=== PATIENT | female | born 1980 | race African-American/Black ===

== ENCOUNTER → 2025-06-24 | Outpatient (CLI) | payer OTHER ==
[2025-06-24 11:57] LABS: PLATELET COUNT (AUTO) 260 K/uL (150-450); RED BLOOD CELL COUNT(AUTO) 4.39 MIL/uL (4.00-5.20); RED CELL DISTRIBUTION WIDTH 18.8 % (11.5-14.5); WHITE BLOOD COUNT (AUTO) 2.1 K/uL (4.5-11.0)
[2025-06-24 12:27] LABS: ASPARTATE AMINOTRANSFERASE 34 U/L (15-37); CALCIUM, TOTAL 8.3 mg/dL (8.8-10.5); CHOL/HDL RATIO 2.7 (3.9-5.7); CREATININE 0.57 mg/dL (0.60-1.30); GLOMERULAR FILTR. RATE CALC > 60 mL/min (>60); GLUCOSE,RANDOM 82 mg/dL (70-110); LDL CHOL (CALC.) 91 mg/dL (0-130); SODIUM SERUM 142 mmol/L (136-145); TOTAL PROTEIN, SERUM 8.3 g/dL (6.4-8.2); UREA NITROGEN, BLOOD 14 mg/dL (7-18)
[2025-06-24 12:34] LABS: RBC MORPHOLOGY COMMENT ABNORMAL RBC MORPH
[2025-06-27 04:06] LABS: QUANTIFERON+, Nil Value 0.04 IU/mL; QUANTIFERON+,Mitogen Value 4.07 IU/mL; QUANTIFERON+,TB1 Antigen Value 0.04 IU/mL; QUANTIFERON+,TB2 Antigen Value 0.05 IU/mL; QUANTIFERON, TB GOLD PLUS Negative (Negative)
== END | disposition home or self-care (01) ==
LOC: LABMN 11:14
PROVIDERS: ATTEND Internal Medicine Geriatric Medicine
DX: Z13.228 Encounter for screening for other metabolic disorders (principal); R76.12 Nonspecific reaction to cell mediated immunity measurement of gamma interferon antigen response without active tuberculosis
CPT/HCPCS: 80053; 80061; 85025; 86480; 36415-L1; 36415-TC